=== PATIENT | male | born 1995 | race Two or more races ===

== ENCOUNTER 2017-06-28 03:01 | Emergency (ER) | payer OTHER ==
[~2017-06-28] VITALS: Ht 170.2 cm; Wt 90.7 kg
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
[2017-06-28] MEDS ORDERED: PROPARACAINE 0.5% OP 15ML BTL OU ONE (03:20)
[2017-06-28] MEDS ORDERED: FLUORESCEIN SOD 1 MG 1 EA STRP OU ONE (03:20)
[2017-06-28] MEDS ORDERED: TOBRAMYCIN 0.3% OP SOLN 5 ML OD ONE (03:40)
[2017-06-28] MEDS ORDERED: AMOX/CLAV 875 MG TAB PO ONE (03:40)
[2017-06-28] MEDS ORDERED: AMOX-559 PO (03:45)
[2017-06-28 04:06] VITALS: BP 153/99
== END 2017-06-28 04:07 | disposition home or self-care (01) ==
LOC: ER 03:04
DX: S01.111A Laceration without foreign body of right eyelid and periocular area, initial encounter (principal); Y04.2XXA Assault by strike against or bumped into by another person, initial encounter
CPT/HCPCS: 99283